=== PATIENT | female | born 1955 | race Caucasian/White ===

== ENCOUNTER 2017-02-25 05:51 | Day surgery (SDC) | payer OTHER ==
[2017-02-25] MEDS ORDERED: Ketamine HCl 50 MG/ML IV ONE (05:52)
[2017-02-25] MEDS ORDERED: DIPRIVAN 200 MG/20 ML IV ONE (05:52)
[2017-02-25] MEDS ORDERED: Lactated Ringers 1,000 ML IV SCH (06:30)
[2017-02-25 08:23] VITALS: BP 119/76; PULSE 51; O2SAT 98
--- NOTE | 2017-02-28 10:22 | OP ---
SURGERY DATE/TIME: 02/25/2017 0700 PREOPERATIVE DIAGNOSIS: Screening exam. POSTOPERATIVE DIAGNOSIS: Colon polyps. PROCEDURE: Colonoscopy with polypectomy x2. SURGEON: Dr. Emmanuel. ANESTHESIA: MAC. Medications given by anesthesia department. HISTORY: The patient is a 61 year-old white female presenting now for screening colonoscopy. She was appraised of the risks of the procedure including the risk of perforation, phlebitis, untoward reaction to medication, bleeding and missed lesions. The patient verbalized her understanding and desired to have the procedure performed. DESCRIPTION OF PROCEDURE: The patient was given the medications by the anesthesia department. She had continuous pulse oximetry, ECG monitoring, intermittent blood pressure monitoring and tidal CO2 monitoring during the examination. She was placed in the left lateral decubitus position. A digital rectal examination was performed and revealed normal anal sphincter tone and no masses. The flexible Olympus pediatric colonoscope was used to intubate the rectum. A view of the colon was developed sequentially to the cecum. Upon insertion and withdrawal was noted polyps in the ascending and sigmoid colon and these were destroyed using hot biopsy technique and multiple biopsies of the forceps to completely destroy the lesions. Upon insertion and withdrawal including a retroflex view in the rectum, no other mucosal lesions were encountered. The scope was removed from the patient who tolerated the procedure well and was sent back to OP recovery in good condition. The prep was noted to be fair.
== END 2017-02-25 08:36 | disposition home or self-care (01) ==
LOC: SDC 05:51
PROVIDERS: ATTEND Family Medicine
PROC: 0DBK8ZX Excision of Ascending Colon, Via Natural or Artificial Opening Endoscopic, Diagnostic (ICD-10-PCS; principal; 2017-02-25)
PROC: 0DBN8ZX Excision of Sigmoid Colon, Via Natural or Artificial Opening Endoscopic, Diagnostic (ICD-10-PCS; 2017-02-25)
DX: K63.5 Polyp of colon (principal); Z12.11 Encounter for screening for malignant neoplasm of colon
CPT/HCPCS: 00810; 88305; J2704

== ENCOUNTER 2017-09-24 15:15 | Emergency (ER) | payer OTHER ==
--- NOTE | 2017-09-24 16:21 | ERPHSYRPT ---
- History of Present Illness Historian: patient Exam Limitations: no limitations Patient Subjective Stated Complaint: Pt states "I had an AMP surgery, a bladder fix and a rectocele. I was having problems with the first cather they put in so I went to Dr. Chen took out the first catheter and placed this one and now I am not urinating out agian and my belly hurts." Triage Nursing Assessment: Pt alert and oriented X 3, skin pwd. PT has indwelling catheter with leg bag, very little urine in leg bag. Pt lower abdomen is firm and tender. Timing/Duration: today Activities at Onset: none Quality: sharpness Abdominal Pain Onset Location: generalized abdomen Pain Radiation: no radiation Severity of Pain-Max: severe Severity of Pain-Current: moderate Modifying Factors: Improves With: nothing Associated Symptoms: nausea, No loss of appetite Previous symptoms: same symptoms as today Hx Tetanus, Diphtheria Vaccination/Date Given: Yes Hx Influenza Vaccination/Date Given: Yes Hx Pneumococcal Vaccination/Date Given: No Immunizations Up to Date: Yes <TEO APPLE - Last Filed: 09/24/17 16:21> <TEJINDER PARIKH - Last Filed: 09/24/17 19:34> - History of Present Illness Time Seen by Provider: 09/24/17 16:13 Physician History: 62 y/o female s/p rectocele and bladder fix comes to the ER with complaints of abdominal distention, abdominal pain and less urine output. Pt was seen by OB/ [employer] DES[employer]INEER, Dr Chen yesterday and had a catheter placed with 800 cc urine output. Pt describes the pain as sharp, constant, 5/10 and pt has not taken any pain meds. Pt has been placed on macrobid for 5 days. (TEO APPLE) Allergies/Adverse Reactions: latex [Latex] Allergy (Mild, Verified 02/25/17 06:08) Sulfa (Sulfonamide Antibiotics) [Sulfa(Sulfonamide Antibiotics)] Allergy (Mild, Verified 02/25/17 06:08) piroxicam [From Feldene] Allergy (Verified 02/25/17 06:08) Home Medications: Escitalopram Oxalate 10 mg [Lexapro 10 MG] 10 mg PO BID 12/05/11 [History] Eszopiclone [Lunesta] 3 mg PO HS 12/05/11 [History] Mupirocin [Bactroban OINTMENT] 0 gm TOP BID 02/10/12 [History] Dicyclomine HCl 20 mg [Bentyl 20 mg] 20 mg PO QID 02/18/17 [History] Estrogens,Conjugated [Premarin] 0.3 mg PO DAILY 02/18/17 [History] Levothyroxine Sodium 50 Mcg [Synthroid 50 Mcg] 50 mcg PO DAILY 02/18/17 [ History] Pravastatin Sodium [Pravachol] 20 mg PO HS 02/18/17 [History] - Review of Systems Constitutional: No Fever, No Chills Eyes: No Symptoms Ears, Nose, & Throat: No Symptoms Respiratory: No Cough, No Dyspnea Cardiac: No Chest Pain, No Edema, No Syncope Abdominal/Gastrointestinal: Abdominal Pain, Nausea, No Vomiting, No Diarrhea Genitourinary Symptoms: Urinary Retention, No Dysuria, No Frequency Musculoskeletal: No Back Pain, No Neck Pain Skin: No Rash Neurological: No Dizziness, No Focal Weakness, No Sensory Changes Psychological: No Symptoms Endocrine: No Symptoms All Other Systems: Reviewed and Negative <TEO APPLE - Last Filed: 09/24/17 16:21> - Past Medical History Pertinent Past Medical History: Yes Neurological History: No Pertinent History ENT History: No Pertinent History Cardiac History: No Pertinent History Respiratory History: No Pertinent History Endocrine Medical History: No Pertinent History Musculoskeletal History: Fibromyalgia, Other GI Medical History: Diverticulitis, Hemorrhoids, Irritable Bowel History: No Pertinent History Psycho-Social History: Anxiety Female Reproductive Disorders: No Pertinent History Other Medical History: osteopenia,facial infection - Past Surgical History Past Surgical History: Yes Neuro Surgical History: No Pertinent History Cardiac: No Pertinent History Respiratory: No Pertinent History Gastrointestinal: Cholecystectomy Genitourinary: No Pertinent History Musculoskeletal: Joint Replacement, Orthopedic Surgery, Other Female Surgical History: Hysterectomy Other Surgical History: rt knee orthos times 2,total hip lt side, rt side rotator cuff ,t&a,. bladder fix and rectocele - Social History Smoking Status: Never smoker Exposure to second hand smoke: Yes Drug Use: none Patient Lives Alone: No - Female History Hx Now: No <TEO APPLE - Last Filed: 09/24/17 16:21> - Physical Exam General Appearance: no apparent distress, alert Eye Exam: PERRL/EOMI, eyes nml inspection Ears, Nose, Throat Exam: normal ENT inspection, pharynx normal, moist mucous membranes Neck Exam: normal inspection, non-tender, supple, full range of motion Respiratory Exam: normal breath sounds, lungs clear, No respiratory distress Cardiovascular Exam: regular rate/rhythm, normal heart sounds Gastrointestinal/Abdomen Exam: soft, normal bowel sounds, tenderness, distention , No mass Back Exam: normal inspection, normal range of motion, No CVA tenderness, No vertebral tenderness Extremity Exam: normal inspection, normal range of motion, pelvis stable Neurologic Exam: alert, oriented x 3, cooperative, normal mood/affect, nml cerebellar function, sensation nml, No motor deficits Skin Exam: normal color, warm, dry SpO2: 99 Oxygen Delivery: Room Air <TEO APPLE - Last Filed: 09/24/17 16:21> - Nursing Vital Signs Nursing Vital Signs: Initial Vital Signs Temperature 97.8 F 09/24/17 15:34 Pulse Rate 84 09/24/17 15:34 Respiratory Rate 16 09/24/17 15:34 Blood Pressure 149/94 09/24/17 15:34 O2 Sat by Pulse Oximetry 99 09/24/17 15:34 Pain Scale Pain Intensity 0 - Course Nursing assessment & vital signs reviewed: Yes - CT Exams Abdomen/Pelvis CT Interpretation: Tele-radiologist Report, No appendicitis, Other (thickening of bladder ) <TEJINDER PARIKH - Last Filed: 09/24/17 19:34> Ordered Tests: Active Orders 24 hr Category Date Time Status Cath [Catheter-[place] Bui] STAT Care 09/24/17 15:53 Active IV Insertion STAT Care 09/24/17 16:29 Active ABDOMEN AND PELVIS W CONTRAST [CT] Stat Exams 09/24/17 16:29 Taken AMYLASE Stat Lab 09/24/17 16:45 Completed CBC W DIFF Stat Lab 09/24/17 16:45 Completed CMP Stat Lab 09/24/17 16:45 Completed CULTURE,URINE Stat Lab 09/24/17 16:50 Received LIPASE Stat Lab 09/24/17 16:45 Completed UA W/ MICROSCOPIC Stat Lab 09/24/17 16:50 Completed Medication Summary Discontinued Medications Generic Name Dose Route Start Last Admin Trade Name Freq PRN Reason Stop Dose Admin Sodium Chloride 1,000 mls @ 999 mls/hr 09/24/17 16:29 09/24/17 16:48 Sodium Chloride 0.9% 1000 Ml IV 09/24/17 17:29 999 mls/hr .Q1H1M STA Administration Sodium Chloride Confirm 09/24/17 16:40 Sodium Chloride 0.9% 1000 Ml Administered 09/24/17 16:41 Dose 1,000 mls @ ud .ROUTE .STK-MED ONE Morphine Sulfate 4 mg 09/24/17 16:29 09/24/17 16:48 Morphine Sulfate 4 Mg Inj IV 09/24/17 16:30 4 mg STAT ONE Administration Morphine Sulfate Confirm 09/24/17 16:40 Morphine Sulfate 4 Mg Inj Administered 09/24/17 16:41 Dose 4 mg .ROUTE .STK-MED ONE Ondansetron HCl 4 mg 09/24/17 16:29 09/24/17 16:48 Zofran 4 Mg/2 Ml Vial IV 09/24/17 16:30 4 mg STAT ONE Administration Ondansetron HCl Confirm 09/24/17 16:40 Zofran 4 Mg/2 Ml Vial Administered 09/24/17 16:41 Dose 4 mg .ROUTE .STK-MED ONE Lab/Rad Data: Laboratory Result Diagrams 09/24/17 16:45 09/24/17 16:45 Laboratory Results 09/24/17 09/24/17 09/24/17 Range/Units 16:50 16:45 16:45 WBC 7.6 (4.0-10.5) K/mm3 RBC 3.83 L (4.1-5.4) M/mm3 Hgb 12.7 (12.0-16.0) gm/dl Hct 38.2 (35-47) % MCV 99.7 (78-100) fl MCH 33.1 H (26-32) pg MCHC 33.2 (32-36) g/dl RDW 12.5 (11.5-14.0) % Plt Count 224 (150-450) K/mm3 MPV 9.9 H (6-9.5) fl Gran % 59.9 (36.0-66.0) % Eos # (Auto) 0.41 (0-0.5) Absolute Lymphs (auto) 1.93 (1.0-4.6) Absolute Monos (auto) 0.68 (0.0-1.3) Lymphocytes % 25.4 (24.0-44.0) % Monocytes % 8.9 (0.0-12.0) % Eosinophils % 5.4 H (0.00-5.0) % Basophils % 0.4 (0.0-0.4) % Absolute Granulocytes 4.56 (1.4-6.9) Basophils # 0.03 (0-0.4) Sodium 143 (137-145) mmol/L Potassium 3.5 (3.5-5.1) mmol/L Chloride 105 (98-107) mmol/L Carbon Dioxide 26 (22-30) mmol/L Anion Gap 15.0 (5-15) MEQ/L BUN 14 (7-17) mg/dL Creatinine 0.74 (0.52-1.04) mg/dL Estimated GFR > 60.0 ML/MIN Glucose 92 (74-106) mg/dL Calcium 9.5 (8.4-10.2) mg/dL Total Bilirubin 0.20 (0.2-1.3) mg/dL AST 17 (14-36) U/L ALT 27 (0-35) U/L Alkaline Phosphatase 98 (38-126) U/L Serum Total Protein 6.9 (6.3-8.2) g/dL Albumin 4.0 (3.5-5.0) g/dL Amylase 53 (30-110) U/L Lipase 102 (23-300) U/L Ur Collection Type CATH Urine Color YELLOW (YELLOW) Urine Appearance SLIGHTLY CLOUDY (CLEAR) Urine pH 6.0 (5-6) Ur Specific [place] 1.020 (1.005-1.025) Urine Protein 30 (Negative) Urine Ketones NEGATIVE (NEGATIVE) Urine Blood 250 (0-5) Carlos/ul Urine Nitrite NEGATIVE (NEGATIVE) Urine Bilirubin NEGATIVE (NEGATIVE) Urine Urobilinogen NORMAL (0-1) mg/dL Ur Leukocyte Esterase 1+ (NEGATIVE) Urine Microscopic RBC 25-50 (0-2) /HPF Urine Microscopic WBC 25-50 (0-5) /HPF Ur Epithelial Cells FEW (FEW) /HPF Urine Bacteria FEW (NEGATIVE) /HPF Urine Culture Reflexed YES (NO) Urine Glucose NEGATIVE (NEGATIVE) mg/dL Specimen Received 09/24/17 1650 <APPLE,NOAH - Last Filed: 09/24/17 16:21> - Progress Progress: improved, re-examined Counseled pt/family regarding: lab results, diagnosis, need for follow-up, rad results <JLTEJINDER SHEEBA - Last Filed: 09/24/17 19:34> - Progress Progress Note: 09/24/17 19:05 pt taken in change of shift handover from Susan Patel abd nontender , bladder now draining well no N/V ruslan PO well, awaiting CT (TEJINDER PARIKH) <APPLE,NOAH - Last Filed: 09/24/17 16:21> - Departure Time of Disposition: 19:29 Departure Disposition: Home Critical Care Time: No <JLLISETHTEJINDER SHEEBA - Last Filed: 09/24/17 19:34> - Departure Clinical Impression: Urinary retention, catheter malfunction /blockage, UTI (urinary tract infection ), bladder wall thickness Condition: Good Referrals: [facility] [Primary Care Provider] - Instructions: Urinary Retention (DC), Urinary Tract Infection, Adult (DC) Additional Instructions: followup with your [employer] this week as planned- return meantime if further problems. also have your blood pressure rechecked and followup with your drs for kidney cyst and thickened bladder wall. Prescriptions: Cephalexin Mh 500 mg [Keflex 500 mg] 500 mg PO TID #30 capsule
[2017-09-24] MEDS ORDERED: Zofran 4 MG/2 ML VIAL IV ONE (16:29)
[2017-09-24] MEDS ORDERED: Sodium Chloride 0.9% 1000 ML 1,000 ML IV STA (16:29)
[2017-09-24] MEDS ORDERED: MORPHINE SULFATE 4 MG INJ IV ONE (16:29)
[2017-09-24] MEDS ORDERED: Zofran 4 MG/2 ML VIAL ONE (16:40)
[2017-09-24] MEDS ORDERED: MORPHINE SULFATE 4 MG INJ ONE (16:40)
[2017-09-24] MEDS ORDERED: Sodium Chloride 0.9% 1000 ML 1,000 ML ONE (16:40)
[2017-09-24 16:55] LABS: BASOPHIL % 0.4 % (0.0-0.4); Basophil (Absolute #) 0.03 (0-0.4); Eosinophil % 5.4 % (0.00-5.0); Eosinophil (Absolute #) 0.41 (0-0.5); Granulocyte Absolute (ANC) 4.56 (1.4-6.9); Granulocytes % 59.9 % (36.0-66.0); Hematocrit 38.2 % (35-47); Hemoglobin 12.7 gm/dl (12.0-16.0); Lymphocyte (Absolute #) 1.93 (1.0-4.6); Lymphocytes % 25.4 % (24.0-44.0); Mean Cell Volume 99.7 fl (78-100); Mean Corpuscular Hgb Concent. 33.2 g/dl (32-36); Mean Platelet Volume 9.9 fl (6-9.5); Monocyte (Absolute #) 0.68 (0.0-1.3); Monocytes % 8.9 % (0.0-12.0); Platelet Count 224 K/mm3 (150-450); Red Blood Count 3.83 M/mm3 (4.1-5.4); Red Cell Distribution Width 12.5 % (11.5-14.0); White Blood Count 7.6 K/mm3 (4.0-10.5)
[2017-09-24 16:56] LABS: Mean Corpuscular Hemoglobin 33.1 pg (26-32)
[2017-09-24 17:05] VITALS: BP 128/74; PULSE 55; O2SAT 97
[2017-09-24 17:12] LABS: ALKALINE PHOSPHATASE 98 U/L (38-126); AMYLASE 53 U/L (30-110); BLOOD UREA NITROGEN 14 mg/dL (7-17); CHLORIDE 105 mmol/L (98-107); Calcium 9.5 mg/dL (8.4-10.2); Carbon Dioxide 26 mmol/L (22-30); Creatinine 1 0.74 mg/dL (0.52-1.04); Glucose 92 mg/dL (74-106); LIPASE 102 U/L (23-300); Potassium 3.5 mmol/L (3.5-5.1); SGOT/AST 17 U/L (14-36); SGPT/ALT 27 U/L (0-35); SODIUM 143 mmol/L (137-145); Total Protein 6.9 g/dL (6.3-8.2)
[2017-09-24 17:52] LABS: Appearance SLIGHTLY CLOUDY (CLEAR); Bilirubin NEGATIVE (NEGATIVE); Blood 250 Ery/ul (0-5); Glucose NEGATIVE (NEGATIVE); Ketones NEGATIVE (NEGATIVE); Leukocyte Esterase 1+ (NEGATIVE); Nitrite NEGATIVE (NEGATIVE); Protein,Urine Dip 30 (Negative); Urobilinogen NORMAL mg/dL (0-1)
[2017-09-24 17:54] LABS: WBC 25-50 /HPF (0-5)
[2017-09-24 17:55] LABS: Bacteria FEW /HPF (NEGATIVE); Epithelial Cells FEW /HPF (FEW); RBC 25-50 /HPF (0-2)
[2017-09-24] MEDS ORDERED: KEFLEX 500 MG PO ONE (19:34)
[2017-09-24] MEDS ORDERED: KEFLEX 500 MG ONE (19:44)
--- NOTE | 2017-09-24 21:12 | XRAY ---
Indication: Unable to urinate. Painful urination. Multiple contiguous axial images obtained through the abdomen and pelvis using 80 cc Isovue 370 contrast. Comparison: None. Lung bases demonstrates minimal bibasilar dependent atelectasis. No infiltrate or effusion. Heart is not enlarged. Left hip prosthesis produces extensive beam artifact limiting images of the pelvis. Noncontrasted stomach and bowel loops appear nonobstructed. Normal appendix. Previous cholecystectomy and hysterectomy. No free fluid/air. 5.7 cm right renal cyst. Bui catheter empties the urinary bladder. Scattered calcified hepatic/splenic granulomas. Remaining liver, pancreas, spleen, adrenal glands, kidneys, ureters appear unremarkable. Minimal aortoiliac calcifications. No AAA or pathologic retroperitoneal lymphadenopathy. Osseous structures intact with mild multilevel degenerative spondylosis including 6 mm L4 anterolisthesis. Impression: 1. Right renal cyst and evidence for old granulomatous disease. 2. No acute intra-abdominal/pelvic abnormalities. 3. Incidental multilevel degenerative spondylosis, L4 grade 1 spondylolisthesis, and left total hip arthroplasty. Comment: Preliminary interpretation was made by [facility]. No critical discrepancy. CTDI 23.21
== END 2017-09-24 20:05 | disposition home or self-care (01) ==
LOC: ED 15:15
DX: R33.9 Retention of urine, unspecified (principal); T83.018A Breakdown (mechanical) of other urinary catheter, initial encounter; N39.0 Urinary tract infection, site not specified; Z98.890 Other specified postprocedural states; N32.89 Other specified disorders of bladder; Z79.899 Other long term (current) drug therapy
CPT/HCPCS: 36000; 36415; 51702; 74177; 80053; 81000; 82150; 83690; 85025; 87077; 87086; 87186; 96360; 96374; 96375; 99284; J2270; J2405; A9270-GY